=== PATIENT | female | born 1995 | race Caucasian/White ===

== ENCOUNTER 2019-03-02 20:21 | Emergency (ER) | payer BC ==
[~2019-03-02] VITALS: Ht 170.2 cm; Wt 100.6 kg
[~2019-03-02 20:21] MED LIST: CEPH-443 PO; CYCL10TA7 PO; IBUP800T48 PO
[2019-03-02 20:24] VITALS: Ht 170.2 cm; Wt 100.6 kg
[2019-03-02] MEDS ORDERED: KETOROLAC 30 MG INJ IM STA (22:27)
[2019-03-02] MEDS ORDERED: HYDROCODONE/APAP (10/325) TAB PO ONE (22:30)
[2019-03-02 22:47] VITALS: BP 130/81; PULSE 69; RESP 18
== END 2019-03-02 22:57 | disposition home or self-care (01) ==
LOC: FTE 20:21
DX: S16.1XXA Strain of muscle, fascia and tendon at neck level, initial encounter (principal); T14.8XXA Other injury of unspecified body region, initial encounter; M62.838 Other muscle spasm; N39.0 Urinary tract infection, site not specified; R07.89 Other chest pain; R51 Headache; V49.49XA Driver injured in collision with other motor vehicles in traffic accident, initial encounter
CPT/HCPCS: 70450; 71046; 72125; 72131; 81003; 81025; 96372; 99285; J1885